=== PATIENT | female | born 2000 ===

== ENCOUNTER → 2023-07-04 | Outpatient (CLI) | payer OTHER | END | disposition home or self-care (01) | LOC: PLD 14:33 → LAB SHORT 14:33 | DX: D48.5 Neoplasm of uncertain behavior of skin (principal) | CPT/HCPCS: 88305 ==

== ENCOUNTER → 2023-08-22 | Outpatient (CLI) | payer OTHER | LOC: LAB 18:36 → LAB SHORT 18:36 | DX: R30.0 Dysuria (principal) | CPT/HCPCS: 87077; 87086; 87186 ==